=== PATIENT | female | born 1955 | race Hispanic/Latino ===

== ENCOUNTER 2017-08-03 10:16 | Emergency (ER) | payer SELFPAY ==
[~2017-08-03] VITALS: Ht 149.9 cm; Wt 79.4 kg
[2017-08-03 12:37] VITALS: BP 188/85
== END 2017-08-03 12:23 | disposition home or self-care (01) ==
LOC: FSED 10:16 → ER 12:23
DX: R10.11 Right upper quadrant pain (principal); R10.12 Left upper quadrant pain; K59.00 Constipation, unspecified
CPT/HCPCS: 74177; 80053; 81003; 85025; 99284

== ENCOUNTER 2017-08-07 19:42 | Emergency (ER) | payer SELFPAY ==
[~2017-08-07] VITALS: Ht 149.9 cm; Wt 79.4 kg
--- OUTSIDE RECORDS SUMMARY | 2017-08-07 19:45 | XMS REPORT | Continuity of Care Document ---
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 No 08/03/17 12:17pm If yes, is advance directive on file with [facility]? No 08/03/17 12:17pm If not on file with [facility] will patient provide a copy? No 08/03/17 12:17pm Do you have a Directive to Physician? No 08/03/17 12:17pm Do you have a Medical Power of Ironer Hand? No 08/03/17 12:17pm Do you have an out of hospital Do Not Resuscitate Order? No 08/03/17 12:17pm Do you have any special needs we should be aware of? No 08/03/17 12:17pm Do you have a support person here with you today? Yes 08/03/17 12:17pm Did patient receive Notice of Privacy Practices? Yes 08/03/17 12:17pm Did patient receive patient rights and responsibilities? Yes 08/03/17 12:17pm Problems No problem information available. Medications No medication information available. Social History Smoking Status Start Date Stop Date Never Smoker Hospital Discharge Instructions No hospital discharge instruction information available. Plan of Care Discharge Date 08/03/17 12:23pm Disposition HOME, SELF-CARE Condition at Discharge Stable Instructions/Education Provided Constipation - Adult Forms Provided Work/School Excuse Prescriptions See Medication Section Referrals REBECA GRAY Darrian (NS) Address: [address] [place] [id number] Additional Instructions/Education TAKE DULCOLAX AND MAGNESUIM CITRATE OVER THE COUNTER DRIECTED FOR CONSTIPATION. FOLLOW UP YOUR DOCTOR IN 2-3 DAYS IF NOT BETTER. Functional Status No functional status information available. Allergies, Adverse Reactions, Alerts No known allergies. Immunizations No immunization information available. Vital Signs Acute Vital Signs Vital Response Date/Time Pulse Pulse Rate (adult) 63 bpm (60 - 90) 08/03/2017 12:37pm Respiratory Rate 16 bpm (12 - 24) 08/03/2017 12:37pm Blood Pressure 188/85 mm Hg 08/03/2017 12:37pm Height 4 ft 11 in 08/03/2017 10:24am Weight 175 lb 08/03/2017 10:24am Body Mass Index 35.3 kg/m^2 08/03/2017 10:24am Results No relevant diagnostic test, laboratory data and/or discharge summary information available. Procedures No procedure information available. Encounters Encounter Location Arrival/Admit Date Discharge/Depart Date Attending Provider Departed Emergency Room [facility] 08/03/17 10:16am 08/03 12:23pm JESSIKA TRUJILLO MD
[2017-08-07 20:48] LABS: BASOPHILS % 0.3 % (0.0-1.0); EOSINOPHILS # (AUTO) 0.2 (0.0-0.4); EOSINOPHILS % 2.5 % (0.0-6.0); HEMATOCRIT 40.5 % (34.2-44.1); HEMOGLOBIN 13.8 g/dL (12.0-16.0); LYMPHOCYTES # (AUTO) 2.7 (1.0-3.2); LYMPHOCYTES % 37.9 % (18.0-39.1); MEAN CORPUSCULAR HEMOGLOBIN 29.9 pg (28-32); MEAN CORPUSCULAR HGB CONC 34.1 g/dL (31-35); MEAN CORPUSCULAR VOLUME 87.9 fL (81-99); MONOCYTES # (AUTO) 0.6 (0.2-0.8); MONOCYTES % 7.8 % (4.4-11.3); NEUTROPHILS # (AUTO) 3.7 (2.1-6.9); NEUTROPHILS % 51.5 % (38.7-80.0); PLATELET COUNT 311 x10e3/uL (140-360); RED BLOOD COUNT 4.61 x10e6/uL (3.6-5.1); RED CELL DISTRIBUTION WIDTH 12.7 % (11.7-14.4)
--- NOTE | 2017-08-07 20:56 | Diagnostic Imaging Report ---
RADIOGRAPH(S) OF THE ABDOMEN AND PELVIS, 4 view(s) HISTORY: Abdominal pain COMPARISON: None available. FINDINGS: No specific evidence of obstruction or ileus. No definite urinary tract calcification. Multiple small round calcific densities project at the lower abdomen and pelvis, most likely phleboliths. The bones are partially obscured by stool and overlying bowel gas. IMPRESSION: 1. Nonobstructive bowel gas pattern. 2. No acute radiographic abnormality. Signed by: Dr. Cruzito Butterfield D.O., M.M.M. on 08/07/2017 8:53 PM
[2017-08-07 21:02] LABS: ALANINE AMINOTRANSFERASE 15 IU/L (0-55); ALBUMIN 3.4 g/dL (3.5-5.0); ALBUMIN/GLOBULIN RATIO 0.9 (0.8-2.0); ALKALINE PHOSPHATASE 77 IU/L (40-150); AMYLASE 174 U/L (25-125); BLOOD UREA NITROGEN 15 mg/dL (7-26); BUN/CREATININE RATIO 19 (6-25); CALCIUM 9.3 mg/dL (8.4-10.2); CARBON DIOXIDE 24 mmol/L (22-29); CHLORIDE 106 mmol/L (98-107); CREATININE, SERUM 0.77 mg/dL (0.57-1.11); EST GLOMERULAR FILTRATION RATE > 60 ML/MIN (60-); GLUCOSE 151 mg/dL (74-118); LIPASE 22 U/L (8-78); SODIUM 138 mmol/L (136-145)
[2017-08-07 21:49] LABS: BILIRUBIN,URINE NEGATIVE (NEGATIVE); CLARITY,URINE CLEAR (CLEAR); COLOR,URINE YELLOW (YELLOW); KETONES,URINE NEGATIVE (NEGATIVE); LEUKOCYTE ESTERASE ,URINE NEGATIVE (NEGATIVE); NITRITE,URINE NEGATIVE (NEGATIVE); PROTEIN,URINE DIPSTICK NEGATIVE (NEGATIVE); URINE UROBILINOGEN 0.2 mg/dL (0.2 - 1)
[2017-08-07 22:03] LABS: BACTERIA,URINE RARE /HPF; EPITHELIAL CELLS,URINE MODERATE /LPF; MUCUS,URINE MANY (RARE); RBC,URINE 0-5 /HPF (0-5); TRANSITIONAL EPI CELLS,URINE MODERATE; WBC,URINE (MAN) 0-5 /HPF (0-5)
== END 2017-08-07 23:45 | disposition home or self-care (01) ==
LOC: ER 19:42
DX: R10.84 Generalized abdominal pain (principal)
CPT/HCPCS: 36415; 74022; 80053; 81001; 82150; 83690; 85025; 99283